=== PATIENT | male | born 1995 | race Caucasian/White ===

== ENCOUNTER 2023-01-31 20:58 | Emergency (ER) | payer OTHER, SELFPAY ==
[2023-01-31 21:09] VITALS: BP 137/96; PULSE 72; RESP 18; TEMP 37.2; O2SAT 98
--- NOTE | 2023-01-31 21:18 | ED_ITS ---
HPI - General Adult General Chief complaint: Abdominal Pain Stated complaint: CHEST PAIN STOOL BLACK ADBOMINAL PAIN Time Seen by Provider: 01/31/23 21:18 Source: patient Mode of arrival: walk-in Limitations: no limitations History of Present Illness HPI narrative: This 27-year-old male presents for evaluation of 3 weeks of right sided chest pain. He points to an area just lateral to his sternum on the right. He denies any shortness of breath, dizziness or diaphoresis. He is also been having intermittent vague abdominal pain. He denies any nausea vomiting or diarrhea. He states he has had some black tarry stools. He denies history of taking NSAIDs or aspirin. He is a moderate drinker but typically only on the weekends. He does not smoke cigarettes but uses a vape pen. Denies any chest pain, shortness of br eath or abdominal pain at this time. He was recently seen at [facility] and had an EKG, chest x-ray, BMP, CBC with differential and troponin ordered. He states that they did not do anything for him and he still does not know what's wrong with him. 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 He denies any trauma. There is no radiation of the chest pain, that he has not currently having, into his arm, back or jaw. He has not had any dizziness or syncope. He denies any weight loss. Related Data Home Medications Medication Instructions Recorded Confirmed No Known Home Medications 01/31/23 01/31/23 Allergies Allergy/AdvReac Type Severity Reaction Status Date / Time No Known Drug Allergies Allergy Verified 01/31/23 21:13 Review of Systems ROS Status of ROS 10 or more systems reviewed and unremarkable except as noted in history and below [facility] Social History Smoking status: Current every day smoker Exam Narrative Exam Narrative: Nurses note and vital signs reviewed and patient is not hypoxic. General: The patient appears well and in no apparent distress. Patient is resting comfortably on cart. Skin: Warm, dry, no pallor noted. There is no rash noted. Head: Normocephalic, atraumatic Eye: Normal conjunctiva, no drainage, EOMI. PERRL Ears, Nose, Mouth, and Throat: oral mucosa is moist. Cardiovascular: Regular Rate and Rhythm S1 and S2, no murmurs rubs or gallops, pulses are brisk and equal bilaterally, no reproducible chest wall tenderness, crepitus or skin rash Respiratory: Patient is in no distress, no accessory muscle use, lungs are clear to auscultation, no wheezing, rales or rhonchi Back: non-tender, no CVA tenderness bilaterally to percussion. GI: Normal bowel sounds, no tenderness to palpation, no masses appreciated. No rebound, guarding, or rigidity noted. Musculoskeletal: The patient has no evidence of calf tenderness, no pitting edema, symmetrical pulses noted bilaterally Neurological: A&O x4, normal speech Psychiatric: Cooperative Constitutional Vital Signs, click to edit/add: Last Vital Signs Temp 98.9 F 01/31/23 21:09 Pulse 72 01/31/23 21:09 Resp 18 01/31/23 21:09 BP 137/96 H 01/31/23 21:09 Pulse Ox 98 01/31/23 21:09 O2 Del Method Room Air 01/31/23 21:09 Course Vital Signs Vital signs: Vital Signs Temperature 98.9 F 01/31/23 21:09 Pulse Rate 72 01/31/23 21:09 Respiratory Rate 18 01/31/23 21:09 Blood Pressure 137/96 H 01/31/23 21:09 Pulse Oximetry 98 01/31/23 21:09 Oxygen Delivery Method Room Air 01/31/23 21:09 Temperature 98.9 F 01/31/23 21:09 Pulse Rate 72 01/31/23 21:09 Respiratory Rate 18 01/31/23 21:09 Blood Pressure 137/96 H 01/31/23 21:09 Pulse Oximetry 98 01/31/23 21:09 Oxygen Delivery Method Room Air 01/31/23 21:09 Medical Decision Making [facility] Narrative Medical decision making narrative: Is 27-year-old male, nonsmoker, presents for evaluation of 3 weeks of right- sided chest pain which she does not have currently and intermittent vague upper abdominal pain. He also states he has noted some black tarry stool. He has not had any weight loss. He does admit to moderate alcohol use. He is not currently having any abdominal pain at this time either. He was seen at [facility] for the chest pain and states they did not do anything for him although he did have a cardiac workup including chest x-ray EKG CBC and chemistry and troponin. He is not currently on any medications. His vital signs are physical exam were benign. EKG done upon arrival was a normal sinus rhythm. An IV was placed and he was given IV fluids as well as Toradol and Pepcid. Routine labs a re reviewed. He has a normal white count and hemoglobin. He has a normal troponin. He has normal electrolytes. D-dimer is normal. Thyroid-stimulating hormone is very minimally elevated. X-ray of the chest and abdomen was ordered and does not show any acute findings. He has not had any recurrent abdominal pain or chest pain while in the emergency department. The results of his labs, x-rays and EKG were discussed with him. His chest pain is likely not cardiac in nature. This was discussed with him. I encouraged him to use Tylenol and Motrin as needed for recurrent pain and he will be discharged home with a perception for Protonix to use for his upper abdominal pain which is likely gastritis. He was encouraged to follow closely with his family physician and return to emergency department if worsening symptoms or any concerns. Lab Data Lab results reviewed: Yes I reviewed the patient's lab results Lab results narrative: Labs are normal with the exception of very mildly elevated thyroid-stimulating hormone Labs: Lab Results 01/31/23 Range/Units 21:40 WBC 7.7 (4.0-11.0) 10^3/uL RBC 5.35 (4.70-6.10) 10^6/uL Hgb 15.4 (14.0-18.0) g/dL Hct 44.9 (42.0-54.0) % MCV 83.9 (80.0-94.0) fL MCH 28.8 (25.9-34.0) pg MCHC 34.3 (29.9-35.2) g/dL RDW 13.6 (11.0-15.0) % Plt Count 210 (150-450) 10^3/uL MPV 9.7 (9.5-13.5) fL Neut % (Auto) 56.8 (43.0-75.0) % Lymph % (Auto) 32.8 (20.5-60.0) % [place] % (Auto) 8.5 (1.7-12.0) % Eos % (Auto) 1.2 (0.9-7.0) % Baso % (Auto) 0.4 (0.2-2.0) % Neut # (Auto) 4.4 (1.4-6.5) 10^3/uL Lymph # (Auto) 2.5 (1.2-3.8) 10^3/uL [place] # (Auto) 0.7 (0.3-0.8) 10^3/uL Eos # (Auto) 0.1 (0.0-0.7) 10^3/uL Baso # (Auto) 0.0 (0.0-0.1) 10^3/uL Abs Immat Gran (auto) 0.02 (0.00-0.03) 10^3/uL Imm/Tot Granulo (auto) 0.3 (0.0-0.5) % ESR 5 (<=15) mm/hr D-Dimer <0.19 (<=0.59) mg/L FEU Sodium 142 (136-145) mmol/L Potassium 3.9 (3.5-5.1) mmol/L Chloride 107 (98-107) mmol/L Carbon Dioxide 25.6 (21.0-32.0) mmol/L Anion Gap 13.3 BUN 8.0 (7.0-18.0) mg/dL Creatinine 0.86 (0.70-1.30) mg/dL Est GFR ( Amer) >60 (>=60) Est GFR (Non-Af Amer) >60 (>=60) BUN/Creatinine Ratio 9.3 Glucose 92 (74-106) mg/dL Calcium 9.3 (8.5-10.1) mg/dL Total Bilirubin 0.3 (0.2-1.0) mg/dL AST 12 L (15-37) U/L ALT 23 (16-63) U/L Alkaline Phosphatase 83 (46-116) U/L Troponin I High Sens 5.5 (4.0-76.1) pg/mL C-Reactive Protein <0.2 (<=1.0) mg/dL Total Protein 7.1 (6.4-8.2) g/dL Albumin 4.1 (3.4-5.0) g/dL Globulin 3.0 g/dL Albumin/Globulin Ratio 1.4 Lipase 62.0 L (73.0-393.0) U/L TSH 3.894 H (0.358-3.740) uIU/mL Discharge Plan Discharge Chief Complaint: Abdominal Pain Clinical Impression: Gastritis, Hypothyroidism, Chest pain, non-cardiac, Abdominal pain Patient Disposition: Home, Self-Care Time of Disposition Decision: 23:58 Condition: Good Prescriptions / Home Meds: No Action No Known Home Medications Instructions: Gastritis (ED), Diet for Stomach Ulcers and Gastritis (ED), Hypothyroidism (ED), Abdominal Pain (ED), Noncardiac Chest Pain (ED), Chest Wall Pain (ED) Stand Alone Forms: Portal Instructions Referrals: Sanjiv Mensah MD [Primary Care Provider] - 1 week Discharge Date/Time: 02/01/23 00:06
--- NOTE | 2023-01-31 21:33 | ECG_ITS ---
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
[2023-01-31] MEDS: 0.9 % SODIUM CHLORIDE 1,000 ML 1000 ML IV (21:46)
[2023-01-31] MEDS: KETOROLAC TROMETHAMINE 30 MG/ML VIAL IVP (21:47)
[2023-01-31] MEDS: FAMOTIDINE/PF 20 MG/2 ML VIAL IV (21:47)
[2023-01-31 21:52] LABS: Basophils Percent Auto 0.4 % (0.2-2.0); Eosinophils Absolute Auto 0.1 10^3/uL (0.0-0.7); Eosinophils Percent Auto 1.2 % (0.9-7.0); Hematocrit 44.9 % (42.0-54.0); Hemoglobin 15.4 g/dL (14.0-18.0); Immature Granulocytes Abs Auto 0.02 10^3/uL (0.00-0.03); Immature Granulocytes Pct Auto 0.3 % (0.0-0.5); Lymphocytes Absolute Auto 2.5 10^3/uL (1.2-3.8); Lymphocytes Percent Auto 32.8 % (20.5-60.0); Mean Corpuscular HGB Conc 34.3 g/dL (29.9-35.2); Mean Corpuscular Hemoglobin 28.8 pg (25.9-34.0); Mean Corpuscular Volume 83.9 fL (80.0-94.0); Mean Platelet Volume 9.7 fL (9.5-13.5); Monocytes Absolute Auto 0.7 10^3/uL (0.3-0.8); Monocytes Percent Auto 8.5 % (1.7-12.0); Neutrophils Absolute Auto 4.4 10^3/uL (1.4-6.5); Neutrophils Percent Auto 56.8 % (43.0-75.0); Platelet Count 210 10^3/uL (150-450); Red Blood Count 5.35 10^6/uL (4.70-6.10); Red Cell Distribution Width 13.6 % (11.0-15.0); White Blood Count 7.7 10^3/uL (4.0-11.0)
[2023-01-31 22:02] LABS: Erythrocyte Sedimentation Rate 5 mm/hr (<=15)
[2023-01-31 22:10] LABS: D Dimer <0.19 mg/L FEU (<=0.59)
[2023-01-31 22:16] LABS: Alanine Aminotransferase 23 U/L (16-63); Albumin Globulin Ratio 1.4; Albumin Level 4.1 g/dL (3.4-5.0); Alkaline Phosphatase 83 U/L (46-116); Anion Gap 13.3; Aspartate Amino Transferase 12 U/L (15-37); BUN Creatinine Ratio 9.3; Bilirubin Total 0.3 mg/dL (0.2-1.0); Calcium 9.3 mg/dL (8.5-10.1); Carbon Dioxide 25.6 mmol/L (21.0-32.0); Chloride 107 mmol/L (98-107); Estimated GFR (African America >60 (>=60); Estimated GFR (Non-African Ame >60 (>=60); Glucose 92 mg/dL (74-106); Potassium 3.9 mmol/L (3.5-5.1); Sodium 142 mmol/L (136-145); Total Protein 7.1 g/dL (6.4-8.2); Troponin I High Sensitivity 5.5 pg/mL (4.0-76.1)
[2023-01-31 22:17] LABS: C Reactive Protein <0.2 mg/dL (<=1.0)
[2023-01-31 22:19] LABS: Thyroid Stimulating Hormone 3.894 uIU/mL (0.358-3.740)
--- NOTE | 2023-01-31 23:08 | XR_ITS ---
[facility] [id number] Patient Name: GERARDO GORDON MRN: [id number] date: 1995 Sex: M Assigned Patient Location: ER Current Patient Location: ED.MAIN Accession/Order Number: [id number] Exam Date: 01/31/2023 23:10 Report Date: 02/01/2023 00:02 At the request of: GUERRERO MARKER Procedure: XR acute abdomen series EXAM: XR acute abdomen series HISTORY: cp/abd pain COMPARISON: None. TECHNIQUE: One view of the chest and 2 views of the abdomen were obtained. FINDINGS: The cardiac silhouette is normal in size. The lungs are clear. There is no significant pneumothorax or pleural effusion. No acute osseous abnormality is seen. There is a nonspecific bowel gas pattern without evidence of bowel obstruction. No intraperitoneal free air is seen. XR/XR acute abdomen series IMPRESSION: 1. No acute cardiopulmonary abnormality. 2. Nonspecific bowel gas pattern without evidence of bowel obstruction. Electronically authenticated by: Jagdish GOLD Date: 02/01/2023 00:02
== END 2023-02-01 00:06 | disposition home or self-care (01) ==
PROVIDERS: Emergency Provider Emergency Medicine; PCP Family Medicine
DX: R07.89 Other chest pain (principal); R10.9 Unspecified abdominal pain; E03.9 Hypothyroidism, unspecified; K29.70 Gastritis, unspecified, without bleeding; F17.210 Nicotine dependence, cigarettes, uncomplicated
CPT/HCPCS: 36415; 74022; 80053; 83690; 84443; 84484; 85025; 85378; 85652; 86140; 93005; 96361; 96374; 96375; 99285